=== PATIENT | female | born 1990 | race Caucasian/White ===

== ENCOUNTER 2016-11-02 01:33 | Emergency (ER) | payer OTHER ==
[2016-11-02 02:21] VITALS: BP 131/76
== END 2016-11-02 02:21 | disposition home or self-care (01) ==
LOC: ED 01:33
DX: J06.9 Acute upper respiratory infection, unspecified (principal)
CPT/HCPCS: J7512

== ENCOUNTER 2016-12-04 07:21 | Emergency (ER) | payer OTHER ==
[2016-12-04 08:42] VITALS: BP 148/72
== END 2016-12-04 08:42 | disposition home or self-care (01) ==
LOC: ED 07:21
DX: L03.012 Cellulitis of left finger (principal); W22.8XXA Striking against or struck by other objects, initial encounter; Y93.89 Activity, other specified; Y99.8 Other external cause status; Y92.89 Other specified places as the place of occurrence of the external cause
CPT/HCPCS: J2001

== ENCOUNTER 2019-01-02 09:08 | Day surgery (SDC) | payer OTHER ==
[~2019-01-02] VITALS: Ht 160 cm; Wt 87.5 kg
[2019-01-02 09:49] VITALS: BP 124/74
[2019-01-02 17:32] VITALS: BP 123/71
== END 2019-01-02 17:00 | disposition home or self-care (01) ==
LOC: DS 09:08 → OR 12:00 → DS 12:00
DX: K80.10 Calculus of gallbladder with chronic cholecystitis without obstruction (principal); K82.8 Other specified diseases of gallbladder; E66.8 Other obesity; J45.909 Unspecified asthma, uncomplicated; K21.9 Gastro-esophageal reflux disease without esophagitis; I12.9 Hypertensive chronic kidney disease with stage 1 through stage 4 chronic kidney disease, or unspecified chronic kidney disease; E11.22 Type 2 diabetes mellitus with diabetic chronic kidney disease; N18.9 Chronic kidney disease, unspecified; D64.9 Anemia, unspecified; G40.909 Epilepsy, unspecified, not intractable, without status epilepticus; F03.90 Unspecified dementia, unspecified severity, without behavioral disturbance, psychotic disturbance, mood disturbance, and anxiety; Z68.34 Body mass index [BMI] 34.0-34.9, adult
CPT/HCPCS: J0330; J0694; J1170; J2250; J2405; J2550; J2704; J2710; J3010; J3490; J7120

== ENCOUNTER 2019-05-26 17:28 | Emergency (ER) | payer OTHER ==
[~2019-05-26] VITALS: Ht 162.6 cm; Wt 86.6 kg
[2019-05-26 18:32] VITALS: BP 124/79; Ht 162.6 cm; Wt 86.6 kg
[2019-05-26 19:28] LABS: BASOPHIL % 0.3 % (0-2); PLATELET COUNT 247 x10^3mcL (130-400); RED CELL DISTRIBUTION WIDTH 13.1 % (11.5-14.5)
[2019-05-26 19:49] LABS: CALCIUM 9.2 mg/dL (8.5-10.1); CARBON DIOXIDE 28.1 mmol/L (21-32); CHLORIDE SERUM 102 mmol/L (98-107); CREATININE SERUM 0.7 mg/dL (0.6-1.0); GFR1 > 60 mL/min; GLUCOSE SERUM 96 mg/dL (74-106); SODIUM SERUM 139 mmol/L (136-145)
[2019-05-26 19:52] LABS: ALBUMIN 3.8 g/dL (3.4-5.0); ALKALINE PHOSPHATASE 81 U/L (46-116); ALT/SGPT 13 U/L (14-59); AST/SGOT 17 U/L (15-37); BILIRUBIN TOTAL 0.32 mg/dL (0.20-1.00); LIPASE 97 IU/L (73-393); TOTAL PROTEIN, SERUM 8.1 g/dL (6.4-8.2)
== END 2019-05-26 21:34 | disposition left against medical advice (07) ==
LOC: ED 17:28
PROVIDERS: Emergency Medicine
DX: K92.1 Melena (principal); Z90.49 Acquired absence of other specified parts of digestive tract
CPT/HCPCS: 36415; 87804